=== PATIENT | male | born 1975 | race Hispanic/Latino ===

== ENCOUNTER 2021-06-23 18:22 | Inpatient (IN) | payer SELFPAY ==
[2021-06-23] MEDS ORDERED: SODIUM CHLORIDE 0.9% 1000 ML 1,000 ML IV ONE (18:39)
[2021-06-23] MEDS ORDERED: KETAMINE 500 MG/5 ML VIAL MDV ONE (18:47)
[2021-06-23] MEDS ORDERED: KETAMINE 500 MG/5 ML VIAL MDV IM ONE (19:08)
[2021-06-23 19:25] LABS: INR 0.86 (0.87-1.13)
[2021-06-23 19:31] LABS: Basophils % (Auto) 0.4 % (0.0-1.8); Eosinophils % (Auto) 0.4 % (0.0-4.3); Hematocrit 44.8 % (35.5-45.6); Hemoglobin 14.7 gm/dl (11.8-15.2); Lymphocytes # (Auto) 1.7 K/mm3 (1.2-5.4); Lymphocytes % (Auto) 18.5 % (13.4-35.0); Mean Corpuscular HGB Conc 33 % (32-34); Mean Corpuscular Volume 91 fl (84-94); Monocytes # (Auto) 0.5 K/mm3 (0.0-0.8); Monocytes % (Auto) 5.2 % (0.0-7.3); Platelet Count 269 K/mm3 (140-440); Red Blood Count 4.95 M/mm3 (3.65-5.03); Red Cell Distribution Width 13.8 % (13.2-15.2)
[2021-06-23 19:38] LABS: Blood Urea Nitrogen 27 mg/dL (9-20)
[2021-06-23 19:39] LABS: Alanine Aminotransferase 30 units/L (7-56); BUN/Creatinine Ratio 25; Calcium 8.9 mg/dL (8.4-10.2); Hemolysis Index 12
--- NOTE | 2021-06-23 19:43 | XRay Report ---
CHEST 1 VIEW 06/23/2021 7:04 PM INDICATION / CLINICAL INFORMATION: Altered Mental Status. COMPARISON: None available. FINDINGS: SUPPORT DEVICES: None. HEART / MEDIASTINUM: No significant abnormality. LUNGS / PLEURA: No significant pulmonary or pleural abnormality. No pneumothorax. ADDITIONAL FINDINGS: No significant additional findings. IMPRESSION: 1. No acute findings. Signer Name: Richard Schwab MD Signed: 06/23/2021 7:39 PM Workstation Name: [id number]
[2021-06-23] MEDS ORDERED: KETAMINE 500 MG/5 ML VIAL MDV IV ONE (19:53)
--- NOTE | 2021-06-23 20:21 | Emergency Department Report ---
<CHASITY HUTCHINSON - Last Filed: 06/24/21 08:54> ED General Adult HPI - General Chief complaint: Psych Stated complaint: UNK Time Seen by Provider: 06/23/21 18:39 - Related Data Allergies Allergy/AdvReac Type Severity Reaction Status Date / Time No Known Allergies Allergy Verified 06/23/21 18:59 ED Course - Reevaluation(s) Reevaluation #1: 06/24/21 06:13 The patient is seen and examined at this time. He is breathing spontaneously and has a gag reflex. He is maxed out on propofol, and also on a Versed drip. His laboratory studies have demonstrated metabolic acidosis, and hypoxemic respiratory failure. Supplemental oxygen is ordered, x-ray the chest unremarkable, Covid swab ordered, empiric Decadron ordered. Noncontrast CT scan of the brain pending, temperature pending, EKG pending. Patient placed on 2012 by myself for acute intoxication likely secondary to polysubstance abuse. We will obtain critical care consultation, and admit this patient to the medical service. His metabolic acidosis is likely secondary to dehydration, likely secondary to polysubstance intoxication Have requested mental health evaluation However, the patient is not medically clear for psychiatric discharge or disposition at this time. However, we do appreciate psychiatric recommendations 06/24/21 07:38 Nursing team endorses that when propofol and sedation already escalated, patient becomes agitated. The patient is breathing sonorously at this time, and his ability to protect his airway appears to be diminished. He was intubated using rapid sequence induction techniques. Please see procedure note. CT scan of the brain negative for acute findings. Discussed the patient's history, physical, laboratory studies and imaging studies with critical care physician, Dr. Aguilar, and hospital physician, Dr. Mercado. Dr. Mercado accepts this patient to the medical service. Dr. Aguilar will follow in consultation, and agrees with admission to the intensive care unit - Intubation Sedative: Etomidate Mg Given: 20 Paralytic: Rocuronium Mg Given: 100 Laryngoscope: fiberoptic video scope Size: 4 Assist Device Used: fiberoptic device ET Tube Size: 7.5 Tube Secured Depth (cm): 25 Tube Secured Location: teeth Tube Placement Confirmation: visualized tube passing t, equal breath sounds bilat, no breath sounds over epi, confirmation by capnometr Patient Tolerated Procedure: well Intubation Complications: none Additional Comments: Patient placed on nasal cannula at 15 L/min. Receives [id number] ventilation. Induced with 20 mg of etomidate, and paralyzed with 100 mg of rocuronium. Video laryngoscopy is performed with a curved S4 blade, and a 7.5 endotracheal tube was easily inserted into the trachea under direct visualization and guidance. There is appropriate end-tidal capnography color change, condensation on the tube, and appropriate pulmonary sounds appreciated. Patient tolerated the procedure well. ED Medical Decision Making - Lab Data Result diagrams: 06/23/21 18:57 06/23/21 18:57 Vital Signs 06/23/21 06/23/21 06/23/21 18:46 19:01 19:15 Pulse Rate 129 H 117 H 112 H Respiratory 17 17 17 Rate Blood Pressure 199/104 196/128 O2 Sat by Pulse 97 95 96 Oximetry 06/23/21 06/23/21 06/23/21 19:31 19:45 20:01 Pulse Rate 107 H 123 H 121 H Respiratory 18 25 H 29 H Rate Blood Pressure 203/128 155/94 181/137 O2 Sat by Pulse 96 99 Oximetry 06/23/21 06/23/21 06/23/21 20:15 20:31 20:45 Pulse Rate 118 H 120 H Respiratory 26 H 32 H Rate Blood Pressure 165/141 165/141 152/89 O2 Sat by Pulse 97 98 96 Oximetry 06/23/21 06/23/21 06/23/21 21:01 21:06 21:15 Pulse Rate 116 H 115 H 121 H Respiratory 21 28 H 26 H Rate Blood Pressure 167/149 167/149 171/106 O2 Sat by Pulse 98 98 98 Oximetry 06/23/21 06/23/21 06/23/21 21:30 21:31 21:45 Pulse Rate 114 H 117 H 113 H Respiratory 19 25 H 24 Rate Blood Pressure 171/106 174/115 192/114 O2 Sat by Pulse 98 98 92 Oximetry 06/23/21 06/23/21 06/23/21 22:00 22:01 22:15 Pulse Rate 113 H 114 H 109 H Respiratory 28 H 23 28 H Rate Blood Pressure 159/94 165/104 180/113 O2 Sat by Pulse 94 94 95 Oximetry 06/23/21 06/23/21 06/23/21 22:16 22:30 22:31 Pulse Rate 106 H 109 H Respiratory 25 H 25 H Rate Blood Pressure 148/83 145/91 O2 Sat by Pulse 97 94 91 Oximetry 06/23/21 06/23/21 06/23/21 23:00 23:01 23:30 Pulse Rate 101 H 103 H 98 H Respiratory 21 19 26 H Rate Blood Pressure 152/89 134/79 125/76 O2 Sat by Pulse 98 98 96 Oximetry 06/24/21 06/24/21 06/24/21 00:00 00:30 01:00 Pulse Rate 79 89 89 Respiratory 23 24 25 H Rate Blood Pressure 131/80 126/79 125/81 O2 Sat by Pulse 99 100 100 Oximetry 06/24/21 06/24/21 06/24/21 01:30 02:00 02:30 Pulse Rate 90 87 85 Respiratory 22 24 27 H Rate Blood Pressure 143/81 137/89 129/81 O2 Sat by Pulse 100 100 99 Oximetry 06/24/21 06/24/21 06/24/21 03:00 03:30 04:00 Pulse Rate 93 H 98 H 91 H Respiratory 26 H 15 29 H Rate Blood Pressure 140/89 140/96 151/99 O2 Sat by Pulse 100 100 100 Oximetry 06/24/21 06/24/21 06/24/21 04:16 04:30 04:46 Pulse Rate 86 84 90 Respiratory 25 H 28 H 27 H Rate Blood Pressure 146/96 144/99 145/95 O2 Sat by Pulse 98 98 100 Oximetry 06/24/21 06/24/21 06/24/21 05:00 05:16 05:30 Pulse Rate 93 H 91 H 89 Respiratory 29 H 28 H 23 Rate Blood Pressure 161/89 153/102 155/109 O2 Sat by Pulse 100 99 100 Oximetry 06/24/21 05:46 Pulse Rate 92 H Respiratory 28 H Rate Blood Pressure 140/95 O2 Sat by Pulse 99 Oximetry Lab Results 06/23/21 06/23/21 06/23/21 Range/Units 18:57 18:57 18:57 WBC 8.9 (4.5-11.0) K/mm3 RBC 4.95 (3.65-5.03) M/mm3 Hgb 14.7 (11.8-15.2) gm/dl Hct 44.8 (35.5-45.6) % MCV 91 (84-94) fl MCH 30 (28-32) pg MCHC 33 (32-34) % RDW 13.8 (13.2-15.2) % Plt Count 269 (140-440) K/mm3 Lymph % (Auto) 18.5 (13.4-35.0) % [place] % (Auto) 5.2 (0.0-7.3) % Eos % (Auto) 0.4 (0.0-4.3) % Baso % (Auto) 0.4 (0.0-1.8) % Lymph # (Auto) 1.7 (1.2-5.4) K/mm3 [place] # (Auto) 0.5 (0.0-0.8) K/mm3 Eos # (Auto) 0.0 (0.0-0.4) K/mm3 Baso # (Auto) 0.0 (0.0-0.1) K/mm3 Seg Neutrophils % 75.5 H (40.0-70.0) % Seg Neutrophils # 6.8 (1.8-7.7) K/mm3 PT 12.7 (12.2-14.9) Sec. INR 0.86 L (0.87-1.13) ABG pH (7.350-7.450) pH Units ABG pCO2 mm Hg ABG pO2 (80.0-90.0) mm Hg ABG HCO3 (20.0-26.0) mmol/L ABG O2 Saturation (95.0-99.0) % ABG O2 Content (0.0-44) ABG Base Excess (-2.0-3.0) mmol/L ABG Hemoglobin (14.0-18.0) gm/dl ABG Carboxyhemoglobin (0.0-5.0) % ABG Methemoglobin (0.0-1.5) % Oxyhemoglobin (95.0-99.0) % FiO2 % Sodium (137-145) mmol/L Potassium (3.6-5.0) mmol/L Chloride (98-107) mmol/L Carbon Dioxide (22-30) mmol/L Anion Gap mmol/L BUN (9-20) mg/dL Creatinine (0.8-1.3) mg/dL Estimated GFR ml/min BUN/Creatinine Ratio % Glucose (75-100) mg/dL Lactic Acid 1.90 (0.7-2.0) mmol/L Calcium (8.4-10.2) mg/dL Total Bilirubin (0.1-1.2) mg/dL AST (5-40) units/L ALT (7-56) units/L Alkaline Phosphatase (35-129) units/L Total Creatine Kinase (55-170) units/L Troponin T (0.00-0.029) ng/mL Total Protein (6.3-8.2) g/dL Albumin (3.9-5) g/dL Albumin/Globulin Ratio % Urine Color (Yellow) Urine Turbidity (Clear) Urine pH (5.0-7.0) Ur Specific Orange (1.003-1.030) Urine Protein (Negative) mg/dL Urine Glucose (UA) (Negative) mg/dL Urine Ketones (Negative) mg/dL Urine Blood (Negative) Urine Nitrite (Negative) Urine Bilirubin (Negative) Urine Urobilinogen (<2.0) mg/dL Ur Leukocyte Esterase (Negative) Urine WBC (Auto) (0.0-6.0) /HPF Urine RBC (Auto) (0.0-6.0) /HPF U Epithel Cells (Auto) (0-13.0) /HPF Urine Mucus /HPF Salicylates (2.8-20.0) mg/dL Urine Opiates Screen Urine Methadone Screen Acetaminophen (10.0-30.0) ug/mL Ur Barbiturates Screen Ur Phencyclidine Scrn Ur Amphetamines Screen U Benzodiazepines Scrn Urine Cocaine Screen U Marijuana (THC) Screen Drugs of Abuse Note Plasma/Serum Alcohol (0-0.07) % 06/23/21 06/23/21 06/23/21 Range/Units 18:57 18:57 18:57 WBC (4.5-11.0) K/mm3 RBC (3.65-5.03) M/mm3 Hgb (11.8-15.2) gm/dl Hct (35.5-45.6) % MCV (84-94) fl MCH (28-32) pg MCHC (32-34) % RDW (13.2-15.2) % Plt Count (140-440) K/mm3 Lymph % (Auto) (13.4-35.0) % [place] % (Auto) (0.0-7.3) % Eos % (Auto) (0.0-4.3) % Baso % (Auto) (0.0-1.8) % Lymph # (Auto) (1.2-5.4) K/mm3 [place] # (Auto) (0.0-0.8) K/mm3 Eos # (Auto) (0.0-0.4) K/mm3 Baso # (Auto) (0.0-0.1) K/mm3 Seg Neutrophils % (40.0-70.0) % Seg Neutrophils # (1.8-7.7) K/mm3 PT (12.2-14.9) Sec. INR (0.87-1.13) ABG pH (7.350-7.450) pH Units ABG pCO2 mm Hg ABG pO2 (80.0-90.0) mm Hg ABG HCO3 (20.0-26.0) mmol/L ABG O2 Saturation (95.0-99.0) % ABG O2 Content (0.0-44) ABG Base Excess (-2.0-3.0) mmol/L ABG Hemoglobin (14.0-18.0) gm/dl ABG Carboxyhemoglobin (0.0-5.0) % ABG Methemoglobin (0.0-1.5) % Oxyhemoglobin (95.0-99.0) % FiO2 % Sodium 144 (137-145) mmol/L Potassium 4.0 (3.6-5.0) mmol/L Chloride 107.8 H (98-107) mmol/L Carbon Dioxide 18 L (22-30) mmol/L Anion Gap 22 mmol/L BUN 27 H (9-20) mg/dL Creatinine 1.1 (0.8-1.3) mg/dL Estimated GFR > 60 ml/min BUN/Creatinine Ratio 25 % Glucose 94 (75-100) mg/dL Lactic Acid (0.7-2.0) mmol/L Calcium 8.9 (8.4-10.2) mg/dL Total Bilirubin 0.60 (0.1-1.2) mg/dL AST 22 (5-40) units/L ALT 30 (7-56) units/L Alkaline Phosphatase 94 (35-129) units/L Total Creatine Kinase 572 H (55-170) units/L Troponin T < 0.010 (0.00-0.029) ng/mL Total Protein 6.9 (6.3-8.2) g/dL Albumin 4.0 (3.9-5) g/dL Albumin/Globulin Ratio 1.4 % Urine Color (Yellow) Urine Turbidity (Clear) Urine pH (5.0-7.0) Ur Specific Orange (1.003-1.030) Urine Protein (Negative) mg/dL Urine Glucose (UA) (Negative) mg/dL Urine Ketones (Negative) mg/dL Urine Blood (Negative) Urine Nitrite (Negative) Urine Bilirubin (Negative) Urine Urobilinogen (<2.0) mg/dL Ur Leukocyte Esterase (Negative) Urine WBC (Auto) (0.0-6.0) /HPF Urine RBC (Auto) (0.0-6.0) /HPF U Epithel Cells (Auto) (0-13.0) /HPF Urine Mucus /HPF Salicylates < 0.3 L (2.8-20.0) mg/dL Urine Opiates Screen Urine Methadone Screen Acetaminophen 5.0 L (10.0-30.0) ug/mL Ur Barbiturates Screen Ur Phencyclidine Scrn Ur Amphetamines Screen U Benzodiazepines Scrn Urine Cocaine Screen U Marijuana (THC) Screen Drugs of Abuse Note Plasma/Serum Alcohol (0-0.07) % 06/23/21 06/23/21 06/23/21 Range/Units 18:57 21:35 Unknown WBC (4.5-11.0) K/mm3 RBC (3.65-5.03) M/mm3 Hgb (11.8-15.2) gm/dl Hct (35.5-45.6) % MCV (84-94) fl MCH (28-32) pg MCHC (32-34) % RDW (13.2-15.2) % Plt Count (140-440) K/mm3 Lymph % (Auto) (13.4-35.0) % [place] % (Auto) (0.0-7.3) % Eos % (Auto) (0.0-4.3) % Baso % (Auto) (0.0-1.8) % Lymph # (Auto) (1.2-5.4) K/mm3 [place] # (Auto) (0.0-0.8) K/mm3 Eos # (Auto) (0.0-0.4) K/mm3 Baso # (Auto) (0.0-0.1) K/mm3 Seg Neutrophils % (40.0-70.0) % Seg Neutrophils # (1.8-7.7) K/mm3 PT (12.2-14.9) Sec. INR (0.87-1.13) ABG pH 7.408 (7.350-7.450) pH Units ABG pCO2 35.2 mm Hg ABG pO2 58.9 L (80.0-90.0) mm Hg ABG HCO3 21.7 (20.0-26.0) mmol/L ABG O2 Saturation 92.1 L (95.0-99.0) % ABG O2 Content 18.8 (0.0-44) ABG Base Excess -2.3 L (-2.0-3.0) mmol/L ABG Hemoglobin 14.8 (14.0-18.0) gm/dl ABG Carboxyhemoglobin 1.2 (0.0-5.0) % ABG Methemoglobin 0.5 (0.0-1.5) % Oxyhemoglobin 90.5 L (95.0-99.0) % FiO2 21 % Sodium (137-145) mmol/L Potassium (3.6-5.0) mmol/L Chloride (98-107) mmol/L Carbon Dioxide (22-30) mmol/L Anion Gap mmol/L BUN (9-20) mg/dL Creatinine (0.8-1.3) mg/dL Estimated GFR ml/min BUN/Creatinine Ratio % Glucose (75-100) mg/dL Lactic Acid (0.7-2.0) mmol/L Calcium (8.4-10.2) mg/dL Total Bilirubin (0.1-1.2) mg/dL AST (5-40) units/L ALT (7-56) units/L Alkaline Phosphatase (35-129) units/L Total Creatine Kinase (55-170) units/L Troponin T (0.00-0.029) ng/mL Total Protein (6.3-8.2) g/dL Albumin (3.9-5) g/dL Albumin/Globulin Ratio % Urine Color Straw (Yellow) Urine Turbidity Clear (Clear) Urine pH 5.0 (5.0-7.0) Ur Specific Orange 1.008 (1.003-1.030) Urine Protein <15 mg/dl (Negative) mg/dL Urine Glucose (UA) Neg (Negative) mg/dL Urine Ketones Neg (Negative) mg/dL Urine Blood Neg (Negative) Urine Nitrite Neg (Negative) Urine Bilirubin Neg (Negative) Urine Urobilinogen < 2.0 (<2.0) mg/dL Ur Leukocyte Esterase Neg (Negative) Urine WBC (Auto) 1.0 (0.0-6.0) /HPF Urine RBC (Auto) < 1.0 (0.0-6.0) /HPF U Epithel Cells (Auto) 2.0 (0-13.0) /HPF Urine Mucus Few /HPF Salicylates (2.8-20.0) mg/dL Urine Opiates Screen Urine Methadone Screen Acetaminophen (10.0-30.0) ug/mL Ur Barbiturates Screen Ur Phencyclidine Scrn Ur Amphetamines Screen U Benzodiazepines Scrn Urine Cocaine Screen U Marijuana (THC) Screen Drugs of Abuse Note Plasma/Serum Alcohol < 0.01 (0-0.07) % 06/23/21 Range/Units Unknown WBC (4.5-11.0) K/mm3 RBC (3.65-5.03) M/mm3 Hgb (11.8-15.2) gm/dl Hct (35.5-45.6) % MCV (84-94) fl MCH (28-32) pg MCHC (32-34) % RDW (13.2-15.2) % Plt Count (140-440) K/mm3 Lymph % (Auto) (13.4-35.0) % [place] % (Auto) (0.0-7.3) % Eos % (Auto) (0.0-4.3) % Baso % (Auto) (0.0-1.8) % Lymph # (Auto) (1.2-5.4) K/mm3 [place] # (Auto) (0.0-0.8) K/mm3 Eos # (Auto) (0.0-0.4) K/mm3 Baso # (Auto) (0.0-0.1) K/mm3 Seg Neutrophils % (40.0-70.0) % Seg Neutrophils # (1.8-7.7) K/mm3 PT (12.2-14.9) Sec. INR (0.87-1.13) ABG pH (7.350-7.450) pH Units ABG pCO2 mm Hg ABG pO2 (80.0-90.0) mm Hg ABG HCO3 (20.0-26.0) mmol/L ABG O2 Saturation (95.0-99.0) % ABG O2 Content (0.0-44) ABG Base Excess (-2.0-3.0) mmol/L ABG Hemoglobin (14.0-18.0) gm/dl ABG Carboxyhemoglobin (0.0-5.0) % ABG Methemoglobin (0.0-1.5) % Oxyhemoglobin (95.0-99.0) % FiO2 % Sodium (137-145) mmol/L Potassium (3.6-5.0) mmol/L Chloride (98-107) mmol/L Carbon Dioxide (22-30) mmol/L Anion Gap mmol/L BUN (9-20) mg/dL Creatinine (0.8-1.3) mg/dL Estimated GFR ml/min BUN/Creatinine Ratio % Glucose (75-100) mg/dL Lactic Acid (0.7-2.0) mmol/L Calcium (8.4-10.2) mg/dL Total Bilirubin (0.1-1.2) mg/dL AST (5-40) units/L ALT (7-56) units/L Alkaline Phosphatase (35-129) units/L Total Creatine Kinase (55-170) units/L Troponin T (0.00-0.029) ng/mL Total Protein (6.3-8.2) g/dL Albumin (3.9-5) g/dL Albumin/Globulin Ratio % Urine Color (Yellow) Urine Turbidity (Clear) Urine pH (5.0-7.0) Ur Specific Orange (1.003-1.030) Urine Protein (Negative) mg/dL Urine Glucose (UA) (Negative) mg/dL Urine Ketones (Negative) mg/dL Urine Blood (Negative) Urine Nitrite (Negative) Urine Bilirubin (Negative) Urine Urobilinogen (<2.0) mg/dL Ur Leukocyte Esterase (Negative) Urine WBC (Auto) (0.0-6.0) /HPF Urine RBC (Auto) (0.0-6.0) /HPF U Epithel Cells (Auto) (0-13.0) /HPF Urine Mucus /HPF Salicylates (2.8-20.0) mg/dL Urine Opiates Screen Negative Urine Methadone Screen Negative Acetaminophen (10.0-30.0) ug/mL Ur Barbiturates Screen Negative Ur Phencyclidine Scrn Negative Ur Amphetamines Screen Positive U Benzodiazepines Scrn Positive Urine Cocaine Screen Negative U Marijuana (THC) Screen Positive Drugs of Abuse Note Disclamer Plasma/Serum Alcohol (0-0.07) % - EKG Data -: EKG Interpreted by Ia EKG shows normal: sinus rhythm Rate: normal - EKG Data When compared to previous EKG there are: previous EKG unavailable 06/24/21 07:45 The EKG is interpreted at 06: 41 Sinus rhythm, 97 bpm. Normal axis, QTC 4 5 6 ms, high left ventricular voltage, minimal motion artifact. Not a STEMI. No prior for comparison. Normal P wave axis. - Radiology Data Radiology results: pending, report reviewed, image reviewed CHEST 1 VIEW 06/23/2021 7:04 PM INDICATION / CLINICAL INFORMATION: Altered Mental Status. COMPARISON: None available. FINDINGS: SUPPORT DEVICES: None. HEART / MEDIASTINUM: No significant abnormality. LUNGS / PLEURA: No significant pulmonary or pleural abnormality. No pneumothorax. ADDITIONAL FINDINGS: No significant additional findings. IMPRESSION: 1. No acute findings. Signer Name: Richard Schwab MD Signed: 06/23/2021 6:39 PM Workstation Name: [id number] CHEST 1 VIEW 06/24/2021 7:49 AM INDICATION / CLINICAL INFORMATION: ETT placement. COMPARISON: Yesterday. FINDINGS: SUPPORT DEVICES: There is a new endotracheal tube with the tip 2.8 cm above the esequiel. There is a nasogastric tube coursing into the distal stomach with the proximal sidehole well below the gastroesophageal junction. HEART / MEDIASTINUM: Unchanged. LUNGS / PLEURA: Low lung volumes. No definite new pulmonary or pleural abnormality. No pneumothorax. ADDITIONAL FINDINGS: No significant additional findings. IMPRESSION: 1. Endotracheal tube tip is 2.8 cm above the esequiel. 2. Low lung volumes. Signer Name: Marco Borjas MD Signed: 06/24/2021 7:05 AM Workstation Name: [id number] CT HEAD WITHOUT CONTRAST INDICATION / CLINICAL INFORMATION: altered mental status. TECHNIQUE: All CT scans at this location are performed using CT dose reduction for ALARA by means of automated exposure control. COMPARISON: None available. FINDINGS: No acute intracranial hemorrhage. Ventricles are normal in size without midline shift or mass effect. No extra-axial fluid collection is seen. Sinuses are clear. ADDITIONAL FINDINGS: None. IMPRESSION: 1. No acute intracranial abnormality. Signer Name: Jason Heck MD Signed: 06/24/2021 5:44 AM Workstation Name: [id number] Critical Care Time: Yes Critical care time in (mins) excluding proc time.: 35 ED Disposition Clinical Impression: Acute hypoxemic respiratory failure, Acute delirium, Metabolic acidosis, Acute encephalopathy, Polysubstance abuse Disposition: 07 LEFT AGAINST MEDICAL ADVICE Is pt being admited?: Yes Does the pt Need Aspirin: No Condition: Critical <SAM MONSON - Last Filed: 06/26/21 21:07> ED General Adult HPI - General Source: police, EMS Mode of arrival: Stretcher Limitations: Altered Mental Status - History of Present Illness Initial comments: t arrived via police and ems, pt was combative and aggressive on scene, ems rep orted pt was delusional. ems administered 5 mg vesed IM, 50 mg benadryl IM, 2 of Narcan with no result. pt arrived, and restrained at ambulance bay, screaming, spitting, spit mask in place. pt medicated with 2 mg ativan, 20 geodon and 50 benadry IM, no result, pt brought in to room, placed on monitor technician for ketamine administration -: Gradual, hour(s) Severity scale (0 -10): 0 ED Review of Systems ROS: Stated complaint: UNK Other details as noted in HPI Comment: Unobtainable due to pts medical conditions ED Past Medical Hx - Past Medical History Previous Medical History?: No ED Physical Exam - General Limitations: Altered Mental Status General appearance: appears intoxicated, other (agitated combative ) - Head Head exam: Present: atraumatic, normocephalic - Eye Eye exam: Present: normal appearance Pupils: Present: normal accommodation - Respiratory Respiratory exam: Present: normal lung sounds bilaterally - Cardiovascular Cardiovascular Exam: Present: tachycardia, normal heart sounds - GI/Abdominal GI/Abdominal exam: Present: soft - exam: Present: normal inspection - Neurological Exam Neurological exam: Present: other (agitated ) - Psychiatric Psychiatric exam: Present: agitated - Expanded Psychiatric Exam Expanded Focused psych exam: Present: delusional ED Course Vital Signs 06/23/21 06/23/21 06/23/21 18:46 19:01 19:15 Temperature Pulse Rate 129 H 117 H 112 H Respiratory 17 17 17 Rate Blood Pressure 199/104 196/128 O2 Sat by Pulse 97 95 96 Oximetry 06/23/21 06/23/21 06/23/21 19:31 19:45 20:01 Temperature Pulse Rate 107 H 123 H 121 H Respiratory 18 25 H 29 H Rate Blood Pressure 203/128 155/94 181/137 O2 Sat by Pulse 96 99 Oximetry 06/23/21 06/23/21 06/23/21 20:15 20:31 20:45 Temperature Pulse Rate 118 H 120 H Respiratory 26 H 32 H Rate Blood Pressure 165/141 165/141 152/89 O2 Sat by Pulse 97 98 96 Oximetry 06/23/21 06/23/21 06/23/21 21:01 21:06 21:15 Temperature Pulse Rate 116 H 115 H 121 H Respiratory 21 28 H 26 H Rate Blood Pressure 167/149 167/149 171/106 O2 Sat by Pulse 98 98 98 Oximetry 06/23/21 06/23/21 06/23/21 21:30 21:31 21:45 Temperature Pulse Rate 114 H 117 H 113 H Respiratory 19 25 H 24 Rate Blood Pressure 171/106 174/115 192/114 O2 Sat by Pulse 98 98 92 Oximetry 06/23/21 06/23/21 06/23/21 22:00 22:01 22:15 Temperature Pulse Rate 113 H 114 H 109 H Respiratory 28 H 23 28 H Rate Blood Pressure 159/94 165/104 180/113 O2 Sat by Pulse 94 94 95 Oximetry 06/23/21 06/23/21 06/23/21 22:16 22:30 22:31 Temperature Pulse Rate 106 H 109 H Respiratory 25 H 25 H Rate Blood Pressure 148/83 145/91 O2 Sat by Pulse 97 94 91 Oximetry 06/23/21 06/23/21 06/23/21 23:00 23:01 23:30 Temperature Pulse Rate 101 H 103 H 98 H Respiratory 21 19 26 H Rate Blood Pressure 152/89 134/79 125/76 O2 Sat by Pulse 98 98 96 Oximetry 06/24/21 06/24/21 06/24/21 00:00 00:30 01:00 Temperature Pulse Rate 79 89 89 Respiratory 23 24 25 H Rate Blood Pressure 131/80 126/79 125/81 O2 Sat by Pulse 99 100 100 Oximetry 06/24/21 06/24/21 06/24/21 01:30 02:00 02:30 Temperature Pulse Rate 90 87 85 Respiratory 22 24 27 H Rate Blood Pressure 143/81 137/89 129/81 O2 Sat by Pulse 100 100 99 Oximetry 06/24/21 06/24/21 06/24/21 03:00 03:30 04:00 Temperature Pulse Rate 93 H 98 H 91 H Respiratory 26 H 15 29 H Rate Blood Pressure 140/89 140/96 151/99 O2 Sat by Pulse 100 100 100 Oximetry 06/24/21 06/24/21 06/24/21 04:16 04:30 04:46 Temperature Pulse Rate 86 84 90 Respiratory 25 H 28 H 27 H Rate Blood Pressure 146/96 144/99 145/95 O2 Sat by Pulse 98 98 100 Oximetry 06/24/21 06/24/21 06/24/21 05:00 05:16 05:30 Temperature Pulse Rate 93 H 91 H 89 Respiratory 29 H 28 H 23 Rate Blood Pressure 161/89 153/102 155/109 O2 Sat by Pulse 100 99 100 Oximetry 06/24/21 06/24/21 06/24/21 05:46 06:00 06:13 Temperature 98.2 F Pulse Rate 92 H 99 H Respiratory 28 H 30 H Rate Blood Pressure 140/95 167/92 O2 Sat by Pulse 99 97 Oximetry 06/24/21 06/24/21 06/24/21 06:16 06:36 06:46 Temperature Pulse Rate 89 97 H Respiratory 27 H 0 L 25 H Rate Blood Pressure 166/89 166/89 145/85 O2 Sat by Pulse 98 94 94 Oximetry 06/24/21 06/24/21 06/24/21 07:00 07:16 07:30 Temperature Pulse Rate 99 H 100 H 116 H Respiratory 25 H 25 H 16 Rate Blood Pressure 140/74 145/72 146/71 O2 Sat by Pulse 97 98 100 Oximetry 06/24/21 06/24/21 06/24/21 07:46 08:00 08:16 Temperature Pulse Rate 112 H 110 H 107 H Respiratory 20 20 20 Rate Blood Pressure 131/71 143/83 135/81 O2 Sat by Pulse 100 100 100 Oximetry 06/24/21 06/24/21 06/24/21 08:30 08:46 09:00 Temperature Pulse Rate 103 H 102 H 105 H Respiratory 20 20 20 Rate Blood Pressure 138/84 141/87 150/97 O2 Sat by Pulse 100 100 100 Oximetry 06/24/21 06/24/21 06/24/21 09:16 09:30 09:46 Temperature Pulse Rate 101 H 99 H 99 H Respiratory 20 20 20 Rate Blood Pressure 139/91 143/88 144/88 O2 Sat by Pulse 100 100 100 Oximetry 06/24/21 06/24/21 06/24/21 10:00 10:16 13:00 Temperature Pulse Rate 100 H 99 H Respiratory 20 20 Rate Blood Pressure 144/91 138/90 O2 Sat by Pulse 100 98 100 Oximetry - Reevaluation(s) Reevaluation #1: 06/23/21 20:18 pt arrived with more than 12 police , rate analyst and firemen , with head bag and restrain , was given versed and benadryl for sedation but still agitated, given 20 of geodon , [address] benadryl still agiated ketamine given IM with good result , work up negative . ED Medical Decision Making - Lab Data Result diagrams: 06/23/21 18:57 06/23/21 18:57 Critical care attestation.: If time is entered above; I have spent that time in minutes in the direct care of this critically ill patient, excluding procedure time.
[2021-06-23 20:50] LABS: Bilirubin,Urine NEG (Negative); Blood,Urine NEG (Negative); Color,Urine Straw (Yellow); Mucus,Urine FEW /HPF; Protein,Urine <15 mg/dL mg/dL (Negative); RBC,Urine < 1.0 /HPF (0.0-6.0); Urobilinogen,Urine < 2.0 mg/dL (<2.0)
[2021-06-23] MEDS ORDERED: MIDAZOLAM 100 MG in SODIUM CHLORIDE 0.9% 80 ML IV SCH (21:00)
[2021-06-23] MEDS ORDERED: MIDAZOLAM 2 MG/2 ML INJ IV PRN (21:00)
[2021-06-23 21:10] LABS: Cocaine Screen,Urine Negative; Methadone Screen,Urine Negative; Opiate Screen,Urine Negative
[2021-06-23 21:24] LABS: Amphetamine Screen,Urine Positive; Benzodiazepines Screen,Urine Positive; Cannabinoid Screen,Urine Positive
[2021-06-23 21:59] LABS: ABG Base Excess -2.3 mmol/L (-2.0-3.0); ABG HCO3 21.7 mmol/L (20.0-26.0); ABG Methemoglobin 0.5 % (0.0-1.5); ABG Oxygen Saturation 92.1 % (95.0-99.0); ABG PCO2 35.2 mm Hg; ABG PH 7.408 pH Units (7.350-7.450); ABG PO2 58.9 mm Hg (80.0-90.0)
[2021-06-24] MEDS ORDERED: LACTATED RINGERS 1,000 ML IV ONE (06:03)
[2021-06-24] MEDS ORDERED: SODIUM CHLORIDE 0.9% 1000 ML 1,000 ML ONE (06:04)
[2021-06-24] MEDS ORDERED: dexAMETHasone 4 MG/ML VIAL IV ONE (06:14)
--- NOTE | 2021-06-24 06:49 | Cat Scan Report ---
CT HEAD WITHOUT CONTRAST INDICATION / CLINICAL INFORMATION: altered mental status. TECHNIQUE: All CT scans at this location are performed using CT dose reduction for ALARA by means of automated e xposure control. COMPARISON: None available. FINDINGS: No acute intracranial hemorrhage. Ventricles are normal in size without midline shift or mass effect. No extra-axial fluid collection is seen. Sinuses are clear. ADDITIONAL FINDINGS: None. IMPRESSION: 1. No acute intracranial abnormality. Signer Name: Jason Heck MD Signed: 06/24/2021 6:44 AM Workstation Name: [id number]
[2021-06-24] MEDS ORDERED: ETOMIDATE 20 MG/10 ML INJ IV ONE ×2 (07:30→10:00)
[2021-06-24] MEDS ORDERED: KETAMINE 500 MG/5 ML VIAL MDV ONE (07:30)
[2021-06-24] MEDS ORDERED: ROCURONIUM 50 MG/5 ML INJ IV ONE ×2 (07:30→10:00)
[2021-06-24] MEDS ORDERED: MINERAL OIL/PETROLATUM, WHITE OPHTH OINT 3.5 GM OU PRN (07:37)
[2021-06-24] MEDS ORDERED: LIP THERAPY VASELINE TP PRN (07:37)
--- NOTE | 2021-06-24 08:10 | XRay Report ---
CHEST 1 VIEW 06/24/2021 7:49 AM INDICATION / CLINICAL INFORMATION: ETT placement. COMPARISON: Yesterday. FINDINGS: SUPPORT DEVICES: There is a new endotracheal tube with the tip 2.8 cm above the esequiel. There is a na sogastric tube coursing into the distal stomach with the proximal sidehole well below the gastroesoph ageal junction. HEART / MEDIASTINUM: Unchanged. LUNGS / PLEURA: Low lung volumes. No definite new pulmonary or pleural abnormality. No pneumothorax. ADDITIONAL FINDINGS: No significant additional findings. IMPRESSION: 1. Endotracheal tube tip is 2.8 cm above the esequiel. 2. Low lung volumes. Signer Name: Marco Borjas MD Signed: 06/24/2021 8:05 AM Workstation Name: [id number]
--- NOTE | 2021-06-24 08:52 | Electrocardiograph Report ---
[facility] Test Date: 2021-06-24 Test Time: 06:41:04 Pat Name: CHASITY ESCALERA Department: Room: Gender: M Headwaitress: ANAHI : 1975 Requested By: SAM MONSON Order Number: [id number] Reading MD: Jimi Phillips Measurements Intervals [place] Rate: 97 P: 59 AK: 163 QRS: 65 QRSD: 93 T: 51 QT: 358 QTc: 456 Interpretive Statements Sinus rhythm Probable left atrial enlargement No previous ECG available for comparison Electronically Signed On 06-24-2021 8:52:31 EST by Jimi Phillips
[2021-06-24 09:07] LABS: ABG Base Excess -0.6 mmol/L (-2.0-3.0); ABG HCO3 24.1 mmol/L (20.0-26.0); ABG Methemoglobin 0.6 % (0.0-1.5); ABG Oxygen Saturation 98.9 % (95.0-99.0); ABG PCO2 40.3 mm Hg; ABG PH 7.395 pH Units (7.350-7.450); ABG PO2 157.8 mm Hg (80.0-90.0)
[2021-06-24] MEDS ORDERED: SENNOSIDES/DOCUSATE SODIUM 8.6/50 MG TAB FEEDTUBE SCH (10:00)
[2021-06-24] MEDS ORDERED: FAMOTIDINE 20 MG/2 ML INJ IV SCH (10:00)
[2021-06-24 10:23] VITALS: BP 138/90
[2021-06-24] MEDS ORDERED: ONDANSETRON 4 MG/2 ML INJ IV PRN (12:00)
[2021-06-24] MEDS ORDERED: ACETAMINOPHEN 325 MG TAB PO PRN (12:00)
[2021-06-24] MEDS ORDERED: MORPHINE 2 MG/1 ML INJ IV PRN (12:00)
[2021-06-24] MEDS ORDERED: SODIUM CHLORIDE 0.9% 50 ML IVPB IV PRN (12:02)
--- NOTE | 2021-06-24 12:26 | Consultation ---
History of Present Illness - Reason for Consult Consult date: 06/24/21 Reason for consult: Agitation - History of Present Psychiatric Illness ED Note: The patient arrived via police and ems, pt was combative and aggressive on scene, ems reported pt was delusional. ems administered 5 mg vesed IM, 50 mg benadryl IM, 2 of Narcan with no result. pt arrived, and restrained at ambulance bay, screaming, spitting, spit mask in place. pt medicated with 2 mg ativan, 20 geodon and 50 benadry IM, no result, pt brought in to room, placed on environmental monitoring specialist for ketamine administration. Ishan Landa is a 46 year old male with unknown psychiatric history. The patient was seen this morning. He is currently intubated, will assess when he is more alert. PAST PSYCHIATRIC HISTORY PAST MEDICAL HISTORY: None reported Family Psychiatric History: None reported or documented SOCIAL HISTORY REVIEW OF SYSTEMS MENTAL STATUS EXAMINATION Assessment: DX: Continue home medications. Treatment Plan Continue home medications. Risks, benefits and alternatives of medications discussed with the patient, questions answered and consent obtained from patient. PSYCHOTHERAPY: Supportive psychotherapy provided MEDICAL: Per primary team DELIRIUM PRECAUTIONS: Please re-orient patient frequently, keep lights on during the day, and minimize benzodiazepines and opiates as these medications could worsen patient's confusion. PHARMACY COORDINATOR: per primary DISPOSITION: Do not recommend acute psychiatric treatment. Will follow. Thank you for the consult. Please contact with any questions and/or concerns. Case discussed with Dr. Dickinson who agrees with current disposition Medications and Allergies Medications and Allergies Allergies Allergy/AdvReac Type Severity Reaction Status Date / Time No Known Allergies Allergy Verified 06/23/21 18:59 Active Meds: Active Medications Acetaminophen (Acetaminophen 325 Mg Tab) 650 mg PO Q4H PRN PRN Reason: Pain MILD(1-3)/Fever >100.5/HOLCOMB Famotidine (Famotidine 20 Mg/2 Ml Inj) 20 mg IV BID [facility] Last Admin: 06/24/21 09:31 Dose: 20 mg Hydrophilic Ointment (Lip Therapy Vaseline) 1 applic TP Q2HR PRN PRN Reason: Dry Lips Propofol (Diprivan 10 Mg/Ml) 1,000 mg in 100 mls @ 3.13 mls/hr IV TITR [facility]; Protocol Last Admin: 06/24/21 09:45 Dose: 50 mcg/kg/min, 31.298 mls/hr Midazolam HCl 100 mg/ Sodium (Chloride) 100 mls @ 1 mls/hr IV TITR [facility]; Protocol Last Titration: 06/23/21 22:30 Dose: 3 mg/hr, 3 mls/hr Midazolam HCl (Midazolam 2 Mg/2 Ml Inj) 2 mg IV Q10MIN PRN PRN Reason: Sedation Last Admin: 06/23/21 21:20 Dose: 2 mg Morphine Sulfate (Morphine 2 Mg/1 Ml Inj) 2 mg IV Q4H PRN PRN Reason: Pain, Moderate (4-6) Multi-Ingred Cream/Lotion/Oil/Oint (Mineral Oil/Petrolatum, White Ophth Oint 3.5 Gm) 1 applic OU Q4HR PRN PRN Reason: Dry Eye(s) Ondansetron HCl (Ondansetron 4 Mg/2 Ml Inj) 4 mg IV Q8H PRN PRN Reason: Nausea And Vomiting Senna/Docusate Sodium (Sennosides/Docusate Sodium 8.6/50 Mg Tab) 1 tab FEEDTUBE BID [facility] Last Admin: 06/24/21 09:32 Dose: 1 tab Sodium Chloride (Sodium Chloride 0.9% 10 Ml Flush Syringe) 10 ml IV BID [facility] Sodium Chloride (Sodium Chloride 0.9% 10 Ml Flush Syringe) 10 ml IV PRN PRN PRN Reason: LINE FLUSH Sodium Chloride (Sodium Chloride 0.9% 50 Ml Ivpb) 10 ml IV PRN PRN PRN Reason: LINE FLUSH Mental Status Exam - Vital signs Last Vital Signs Temp 98.2 F 06/24/21 06:13 Pulse 99 H 06/24/21 10:16 Resp 20 06/24/21 10:16 BP 138/90 06/24/21 10:16 Pulse Ox 98 06/24/21 10:16 Results Result Diagrams: 06/23/21 18:57 06/23/21 18:57 Abnormal lab results 06/23/21 06/23/21 06/23/21 Range/Units 18:57 18:57 18:57 Seg Neutrophils % 75.5 H (40.0-70.0) % INR 0.86 L (0.87-1.13) ABG pO2 (80.0-90.0) mm Hg ABG O2 Saturation (95.0-99.0) % ABG Base Excess (-2.0-3.0) mmol/L Oxyhemoglobin (95.0-99.0) % Chloride 107.8 H (98-107) mmol/L Carbon Dioxide 18 L (22-30) mmol/L BUN 27 H (9-20) mg/dL Total Creatine Kinase 572 H (55-170) units/L Salicylates (2.8-20.0) mg/dL Acetaminophen (10.0-30.0) ug/mL 06/23/21 06/23/21 06/23/21 Range/Units 18:57 18:57 21:35 Seg Neutrophils % (40.0-70.0) % INR (0.87-1.13) ABG pO2 58.9 L (80.0-90.0) mm Hg ABG O2 Saturation 92.1 L (95.0-99.0) % ABG Base Excess -2.3 L (-2.0-3.0) mmol/L Oxyhemoglobin 90.5 L (95.0-99.0) % Chloride (98-107) mmol/L Carbon Dioxide (22-30) mmol/L BUN (9-20) mg/dL Total Creatine Kinase (55-170) units/L Salicylates < 0.3 L (2.8-20.0) mg/dL Acetaminophen 5.0 L (10.0-30.0) ug/mL 06/24/21 Range/Units 08:54 Seg Neutrophils % (40.0-70.0) % INR (0.87-1.13) ABG pO2 157.8 H (80.0-90.0) mm Hg ABG O2 Saturation (95.0-99.0) % ABG Base Excess (-2.0-3.0) mmol/L Oxyhemoglobin (95.0-99.0) % Chloride (98-107) mmol/L Carbon Dioxide (22-30) mmol/L BUN (9-20) mg/dL Total Creatine Kinase (55-170) units/L Salicylates (2.8-20.0) mg/dL Acetaminophen (10.0-30.0) ug/mL All other labs normal.
--- NOTE | 2021-06-24 13:08 | History and Physical Report ---
History of Present Illness Date of admission: 06/24/21 11:20 History of present illness: 46 yo male with no signicant past medical history brought in by law enforcement due to aggitation. On arrival patient was combative and aggressive on scene. Per EMS reports, he was delusional and subsequently administered 5 mg versed, 50 mg benadryl, 2 mg Narcan. This did not calm the patient. Per reports, on arrival patient was screaming and spitting requiring spit mask in place and subsequent medication with 2 mg ativan, 20 geodon and 50 benadry IM, again to no effect. ER physician subsequently started patient on ketamine. Eventually the patient was intubated and sedated on propofol and versed due to inability to protect airway. He was admitted to ICU for further management of his encephalopathy. Prior to my encounter, RN paged that patient had self extubated himself. He was saturating 100% on room air, following commands, and protecting airway. Advised the RN to leave ETT out. Upon my assessment the patient was alert and oriented x 4. He stated that he had been at a constitution party in his neighborhood. He denied using benzo's, amphetamines, or THC. He states that he had a drink handed to him and after ingesting it, reported feeling strange. He could not recall much of the night after walking home. He reported hearing the GHB being in his drink but did not know at the time of ingestion. On bedside, patient had no complaints other than discomfort from prabhakar insertion. He denied any headache, nausea, vomiting ,chest pain, shortness of breath, abdominal pain. Remainder of ROS was negative except for stated above. He denied any drug addiction, drug abuse or suicidal or homicidal ideation . He denied any prior history of mental health disorders. PMhx: denies PShx: denies FHx: reviewed noncontributory SH: Tobacco: denies alcohol: admits but states he only drinks on occasion Recreational drug use: denies. Medications and Allergies Allergies Allergy/AdvReac Type Severity Reaction Status Date / Time No Known Allergies Allergy Verified 06/23/21 18:59 Active Meds: Active Medications Acetaminophen (Acetaminophen 325 Mg Tab) 650 mg PO Q4H PRN PRN Reason: Pain MILD(1-3)/Fever >100.5/HOLCOMB Famotidine (Famotidine 20 Mg/2 Ml Inj) 20 mg IV BID [facility] Last Admin: 06/24/21 09:31 Dose: 20 mg Hydrophilic Ointment (Lip Therapy Vaseline) 1 applic TP Q2HR PRN PRN Reason: Dry Lips Propofol (Diprivan 10 Mg/Ml) 1,000 mg in 100 mls @ 3.13 mls/hr IV TITR [facility]; Protocol Last Admin: 06/24/21 09:45 Dose: 50 mcg/kg/min, 31.298 mls/hr Midazolam HCl 100 mg/ Sodium (Chloride) 100 mls @ 1 mls/hr IV TITR [facility]; Protocol Last Titration: 06/23/21 22:30 Dose: 3 mg/hr, 3 mls/hr Midazolam HCl (Midazolam 2 Mg/2 Ml Inj) 2 mg IV Q10MIN PRN PRN Reason: Sedation Last Admin: 06/23/21 21:20 Dose: 2 mg Morphine Sulfate (Morphine 2 Mg/1 Ml Inj) 2 mg IV Q4H PRN PRN Reason: Pain, Moderate (4-6) Multi-Ingred Cream/Lotion/Oil/Oint (Mineral Oil/Petrolatum, White Ophth Oint 3.5 Gm) 1 applic OU Q4HR PRN PRN Reason: Dry Eye(s) Ondansetron HCl (Ondansetron 4 Mg/2 Ml Inj) 4 mg IV Q8H PRN PRN Reason: Nausea And Vomiting Senna/Docusate Sodium (Sennosides/Docusate Sodium 8.6/50 Mg Tab) 1 tab FEEDTUBE BID [facility] Last Admin: 06/24/21 09:32 Dose: 1 tab Sodium Chloride (Sodium Chloride 0.9% 10 Ml Flush Syringe) 10 ml IV BID [facility] Sodium Chloride (Sodium Chloride 0.9% 10 Ml Flush Syringe) 10 ml IV PRN PRN PRN Reason: LINE FLUSH Sodium Chloride (Sodium Chloride 0.9% 50 Ml Ivpb) 10 ml IV PRN PRN PRN Reason: LINE FLUSH Exam - Physical Exam Narrative exam: Physical Exam: VITAL SIGNS: Reviewed. GENERAL: The patient appears normally developed, Vital signs as documented. HEAD: No signs of head trauma. EYES: Pupils are equal. Extraocular motions intact. EARS: Hearing grossly intact. MOUTH: Oropharynx is normal. NECK: No adenopathy, no JVD. CHEST: Chest with clear breath sounds bilaterally. No wheezes, rales, or rhonchi. CARDIAC: tachycardic rate and rhythm. S1 and S2, without murmurs, gallops, or rubs. VASCULAR: No Edema. Peripheral pulses normal and equal in all extremities. ABDOMEN: Soft, non tender and non distended. No rebound or guarding, and no masses palpated. Bowel Sounds normal. MUSCULOSKELETAL: Good range of motion of all major joints. Extremities without clubbing, cyanosis or edema. NEUROLOGIC EXAM: Alert and oriented x 4. no focal sensory or strength deficits. PSYCHIATRIC: Mood normal. SKIN: detail exam as documented in skin assessment - Constitutional Vitals: Temp Pulse Resp BP Pulse Ox 98.2 F 99 H 20 138/90 100 06/24/21 06:13 06/24/21 10:16 06/24/21 10:16 06/24/21 10:16 06/24/21 13:00 HEART Score - HEART Score Troponin: Troponin T < 0.010 ng/mL (0.00-0.029) 06/23/21 18:57 Results - Labs CBC & Chem 7: 06/23/21 18:57 06/23/21 18:57 Labs: Laboratory Last Values WBC 8.9 K/mm3 (4.5-11.0) 06/23/21 18:57 RBC 4.95 M/mm3 (3.65-5.03) 06/23/21 18:57 Hgb 14.7 gm/dl (11.8-15.2) 06/23/21 18:57 Hct 44.8 % (35.5-45.6) 06/23/21 18:57 MCV 91 fl (84-94) 06/23/21 18:57 MCH 30 pg (28-32) 06/23/21 18:57 MCHC 33 % (32-34) 06/23/21 18:57 RDW 13.8 % (13.2-15.2) 06/23/21 18:57 Plt Count 269 K/mm3 (140-440) 06/23/21 18:57 Lymph % (Auto) 18.5 % (13.4-35.0) 06/23/21 18:57 [place] % (Auto) 5.2 % (0.0-7.3) 06/23/21 18:57 Eos % (Auto) 0.4 % (0.0-4.3) 06/23/21 18:57 Baso % (Auto) 0.4 % (0.0-1.8) 06/23/21 18:57 Lymph # (Auto) 1.7 K/mm3 (1.2-5.4) 06/23/21 18:57 [place] # (Auto) 0.5 K/mm3 (0.0-0.8) 06/23/21 18:57 Eos # (Auto) 0.0 K/mm3 (0.0-0.4) 06/23/21 18:57 Baso # (Auto) 0.0 K/mm3 (0.0-0.1) 06/23/21 18:57 Seg Neutrophils % 75.5 % (40.0-70.0) H 06/23/21 18:57 Seg Neutrophils # 6.8 K/mm3 (1.8-7.7) 06/23/21 18:57 PT 12.7 Sec. (12.2-14.9) 06/23/21 18:57 INR 0.86 (0.87-1.13) L 06/23/21 18:57 ABG pH 7.395 pH Units (7.350-7.450) 06/24/21 08:54 ABG pCO2 40.3 mm Hg 06/24/21 08:54 ABG pO2 157.8 mm Hg (80.0-90.0) H 06/24/21 08:54 ABG HCO3 24.1 mmol/L (20.0-26.0) 06/24/21 08:54 ABG O2 Saturation 98.9 % (95.0-99.0) 06/24/21 08:54 ABG O2 Content 20.5 (0.0-44) 06/24/21 08:54 ABG Base Excess -0.6 mmol/L (-2.0-3.0) 06/24/21 08:54 ABG Hemoglobin 14.8 gm/dl (14.0-18.0) 06/24/21 08:54 ABG Carboxyhemoglobin 1.2 % (0.0-5.0) 06/24/21 08:54 ABG Methemoglobin 0.6 % (0.0-1.5) 06/24/21 08:54 Oxyhemoglobin 97.2 % (95.0-99.0) 06/24/21 08:54 FiO2 60 % 06/24/21 08:54 Sodium 144 mmol/L (137-145) 06/23/21 18:57 Potassium 4.0 mmol/L (3.6-5.0) 06/23/21 18:57 Chloride 107.8 mmol/L (98-107) H 06/23/21 18:57 Carbon Dioxide 18 mmol/L (22-30) L 06/23/21 18:57 Anion Gap 22 mmol/L 06/23/21 18:57 BUN 27 mg/dL (9-20) H 06/23/21 18:57 Creatinine 1.1 mg/dL (0.8-1.3) 06/23/21 18:57 Estimated GFR > 60 ml/min 06/23/21 18:57 BUN/Creatinine Ratio 25 % 06/23/21 18:57 Glucose 94 mg/dL (75-100) 06/23/21 18:57 Lactic Acid 1.90 mmol/L (0.7-2.0) 06/23/21 18:57 Calcium 8.9 mg/dL (8.4-10.2) 06/23/21 18:57 Total Bilirubin 0.60 mg/dL (0.1-1.2) 06/23/21 18:57 AST 22 units/L (5-40) 06/23/21 18:57 ALT 30 units/L (7-56) 06/23/21 18:57 Alkaline Phosphatase 94 units/L (35-129) 06/23/21 18:57 Total Creatine Kinase 572 units/L (55-170) H 06/23/21 18:57 Troponin T < 0.010 ng/mL (0.00-0.029) 06/23/21 18:57 Total Protein 6.9 g/dL (6.3-8.2) 06/23/21 18:57 Albumin 4.0 g/dL (3.9-5) 06/23/21 18:57 Albumin/Globulin Ratio 1.4 % 06/23/21 18:57 Urine Color Straw (Yellow) 06/23/21 Unknown Urine Turbidity Clear (Clear) 06/23/21 Unknown Urine pH 5.0 (5.0-7.0) 06/23/21 Unknown Ur Specific [place] 1.008 (1.003-1.030) 06/23/21 Unknown Urine Protein <15 mg/dl mg/dL (Negative) 06/23/21 Unknown Urine Glucose (UA) Neg mg/dL (Negative) 06/23/21 Unknown Urine Ketones Neg mg/dL (Negative) 06/23/21 Unknown Urine Blood Neg (Negative) 06/23/21 Unknown Urine Nitrite Neg (Negative) 06/23/21 Unknown Urine Bilirubin Neg (Negative) 06/23/21 Unknown Urine Urobilinogen < 2.0 mg/dL (<2.0) 06/23/21 Unknown Ur Leukocyte Esterase Neg (Negative) 06/23/21 Unknown Urine WBC (Auto) 1.0 /HPF (0.0-6.0) 06/23/21 Unknown Urine RBC (Auto) < 1.0 /HPF (0.0-6.0) 06/23/21 Unknown U Epithel Cells (Auto) 2.0 /HPF (0-13.0) 06/23/21 Unknown Urine Mucus Few /HPF 06/23/21 Unknown Salicylates < 0.3 mg/dL (2.8-20.0) L 06/23/21 18:57 Urine Opiates Screen Negative 06/23/21 Unknown Urine Methadone Screen Negative 06/23/21 Unknown Acetaminophen 5.0 ug/mL (10.0-30.0) L 06/23/21 18:57 Ur Barbiturates Screen Negative 06/23/21 Unknown Ur Phencyclidine Scrn Negative 06/23/21 Unknown Ur Amphetamines Screen Positive 06/23/21 Unknown U Benzodiazepines Scrn Positive 06/23/21 Unknown Urine Cocaine Screen Negative 06/23/21 Unknown U Marijuana (THC) Screen Positive 06/23/21 Unknown Drugs of Abuse Note Disclamer 06/23/21 Unknown Plasma/Serum Alcohol < 0.01 % (0-0.07) 06/23/21 18:57 Assessment and Plan Assessment and plan: #Acute toxic metabolic encephalopathy (improved) - improving, aox 4 on my encounter - IVF, encourage PO fluid intake - supportive management #Acute hypoxic respiratory failure (resolved) - intubated for airway protection on admission, now self extubated - resolved, CXR clear, no current concern for pneumonia - on room air. #PUI for COVID 19 - RT PCR sent from ED. Pending. #Acute drug intoxication - +amphetamines, +THC, + benzodiazepine (this might be from ativan admin on field). - GHB ingestion suspected given history #SIRS POA - tachycardic, tachypneic, drug induced #Agitation (resolved) - 2/2 drug ingestion. - required multiple sedating agents - now off sedation since self extubating #Polysubstance abuse - behavioral health counseling admin, cousneled on effect of drug abuse, alcohol use, saul nature of addiction, and quitting strategies. +15 min. - mental health consulted. #Advance Care Planning Disease education conducted, care plan discussed, diagnosis discussed, prognosis discussed, patient is full code. Patient acknowledges understanding and agreement with care plan, +30 minutes. Dispo: Can downgrade from ICU to floor bed. Observe overnight.Full psych eval pending. Can discharge tomorrow if cleared and stable. The high probability of a clinically significant, sudden or life threatening deterioration of the [pulmonary, renal] system(s) required my full and direct attention, intervention and personal management. The aggregate critical care time was [60] minutes. This time is in addition to time spent performing reported procedures but includes the following: [x] Data Review and interpretation [x] Patient assessment and monitoring of vital signs [x] Documentation [x] Medication orders and management
--- NOTE | 2021-06-24 15:47 | Discharge Summary ---
Providers - Providers Date of Admission: 06/24/21 11:20 Date of discharge: 06/24/21 Attending physician: MIRELA CINTRON MD 06/24/21 Consult to Case Management [CONS] Routine Services Needed at Discharge: Other Comment:: discharge planning 06/24/21 06:03 Consult to Mental Health [CONS] Stat Reason For Exam: drug induced psychosis Primary care physician: [employer] IN OPERATOR Hospitalization Reason for admission: aggitation, drug overdose Condition: Critical Hospital course: History of present illness: 46 yo male with no signicant past medical history brought in by law enforcement due to aggitation. On arrival patient was combative and aggressive on scene. Per EMS reports, he was delusional and subsequently administered 5 mg versed, 50 mg benadryl, 2 mg Narcan. This did not calm the patient. Per reports, on arrival patient was screaming and spitting requiring spit mask in place and subsequent medication with 2 mg ativan, 20 geodon and 50 benadry IM, again to no effect. ER physician subsequently started patient on ketamine. Eventually the patient was intubated and sedated on propofol and versed due to inability to protect airway. He was admitted to ICU for further management of his encephalopathy. Prior to my encounter, RN paged that patient had self extubated himself. He was saturating 100% on room air, following commands, and protecting airway. Advised the RN to leave ETT out. Upon my assessment the patient was alert and oriented x 4. He stated that he had been at a constitution party in his neighborhood. He denied using benzo's, amphetamines, or THC. He states that he had a drink handed to him and after ingesting it, reported feeling strange. He could not recall much of the night after walking home. He reported hearing the GHB being in his drink but did not know at the time of ingestion. On bedside, patient had no complaints other than discomfort from prabhakar insertion. He denied any headache, nausea, vomiting ,chest pain, shortness of breath, abdominal pain. Remainder of ROS was negative except for stated above. He denied any drug addiction, drug abuse or suicidal or homicidal ideation . He denied any prior history of mental health disorders. Hospital course: Admitted to ICU for acute toxic metabolic encephalopathy due to drug ingestion. Was intubated for airway protection but later self extubated. patient was alert and oriented saturating 100% on room. Patient has signed AMA. All risks explained to patient even the potential for . Patient voiced comprehension of this. RN Diego processed paperwork. Disposition: LEFT AGAINST MEDICAL ADVICE Final Discharge Diagnosis (Prints w/discharge instructions): Acute metabolic enc ephalopathy Core Measure Documentation - Palliative Care Palliative Care/ Comfort Measures: Not Applicable - Core Measures Any of the following diagnoses?: none Exam - Physical Exam Narrative exam: Physical Exam: VITAL SIGNS: Reviewed. GENERAL: The patient appears normally developed, Vital signs as documented. HEAD: No signs of head trauma. EYES: Pupils are equal. Extraocular motions intact. EARS: Hearing grossly intact. MOUTH: Oropharynx is normal. NECK: No adenopathy, no JVD. CHEST: Chest with clear breath sounds bilaterally. No wheezes, rales, or rhonchi. CARDIAC: tachycardic rate and rhythm. S1 and S2, without murmurs, gallops, or rubs. VASCULAR: No Edema. Peripheral pulses normal and equal in all extremities. ABDOMEN: Soft, non tender and non distended. No rebound or guarding, and no masses palpated. Bowel Sounds normal. MUSCULOSKELETAL: Good range of motion of all major joints. Extremities without clubbing, cyanosis or edema. NEUROLOGIC EXAM: Alert and oriented x 4. no focal sensory or strength deficits. PSYCHIATRIC: Mood normal. SKIN: detail exam as documented in skin assessment - Constitutional Vitals: Temp Pulse Resp BP Pulse Ox 98.2 F 99 H 20 138/90 100 06/24/21 06:13 06/24/21 10:16 06/24/21 10:16 06/24/21 10:16 06/24/21 13:00 Plan Follow up with: PRIMARY MD RASHEED [Primary Care Provider] - 3-5 Days
[2021-06-24] MEDS ORDERED: LACTATED RINGERS 1,000 ML IV SCH (16:00)
== END 2021-06-24 14:30 | disposition left against medical advice (07) | DRG 208 ==
LOC: ED 18:22 → CC1 06-24 11:20
PROVIDERS: ADMIT Internal Medicine; ATTEND Internal Medicine
PROC: 4A033R1 Measurement of Arterial Saturation, Peripheral, Percutaneous Approach (ICD-10-PCS; principal; 2021-06-24)
PROC: 5A1935Z Respiratory Ventilation, Less than 24 Consecutive Hours (ICD-10-PCS; 2021-06-24)
PROC: 0BH17EZ Insertion of Endotracheal Airway into Trachea, Via Natural or Artificial Opening (ICD-10-PCS; 2021-06-24)
DX: J96.01 Acute respiratory failure with hypoxia (principal); G92.8 Other toxic encephalopathy; E87.2 Acidosis; R65.10 Systemic inflammatory response syndrome (SIRS) of non-infectious origin without acute organ dysfunction; F19.10 Other psychoactive substance abuse, uncomplicated; Z53.29 Procedure and treatment not carried out because of patient's decision for other reasons
CPT/HCPCS: 36415; 70450; 71045; 80053; 80307; 80320; 81001; 82140; 82550; 82803; 84484; 85025; 85610; 87205; 93005; 93010; 94002; G0378; J3490; Q0162; G0480; J2250; J2704; J7030; U0003